=== PATIENT | female | born 1935 | race Caucasian/White ===

== ENCOUNTER 2020-08-19 09:06 | Outpatient (REF) | payer MEDICARE, SELFPAY | END 2020-08-19 09:07 | disposition home or self-care (01) | LOC: HO.BBR 09:06 | PROVIDERS: Visit Provider Internal Medicine Medical Oncology | DX: D75.1 Secondary polycythemia (principal) | CPT/HCPCS: 36415; 85018; 99195 ==

== ENCOUNTER 2020-09-16 09:00 | Outpatient (REF) | payer MEDICARE, SELFPAY | END 2020-09-16 09:01 | disposition home or self-care (01) | LOC: HO.BBR 09:00 | PROVIDERS: Visit Provider Internal Medicine Medical Oncology | DX: D45 Polycythemia vera (principal) | CPT/HCPCS: 85014; 85018; 99195 ==

== ENCOUNTER 2022-11-16 17:35 | Emergency (ER) | payer MEDICARE, SELFPAY ==
--- NOTE | ~2022-11-16 | CT_ITS ---
EXAMINATION: CT WRIST WITHOUT CONTRAST, RIGHT CLINICAL INFORMATION: Question fracture. COMPARISON: Right hand radiographs performed earlier on 11/16/2022 TECHNIQUE: Axial images were obtained through the right wrist without the administration of intravenous contrast. Multiplanar reformatted images were generated. This CT examination was performed using dose optimization techniques as appropriate, variously including the following: *Automated exposure control *Adjustment of mA and/or kV according to patient size (this includes techniques or standardized protocols for targeted exams where dose is matched to indication/reason for exam; i.e. extremities or head) *Use of iterative reconstruction technique DLP: 186 mGy-cm FINDINGS: Exam quality is significantly limited. No acute fracture or dislocation is identified. Scapholunate interval is maintained. Ulnar positive variance with advanced osteoarthritic change at the DRUJ and findings consistent with ulnocarpal impaction with sclerosis and remodeling of the ulnar base of the lunate and opposing ulnar head. Additional osteoarthritic changes at triscaphe and first CMC joint. Relatively diffuse subcutaneous edema about the wrist. CT/CT wrist RT wo IV con IMPRESSION: 1. Exam quality significantly limited. No acute fracture or dislocation identified within the limitations of this study. 2. 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
--- NOTE | ~2022-11-16 | XR_ITS ---
EXAMINATION: RIGHT WRIST AND HAND CLINICAL INFORMATION: Fracture COMPARISON: None TECHNIQUE: 4 views right wrist and hand FINDINGS: Marked degenerative changes are present at the interphalangeal joints as well as at the first metacarpal phalangeal joint. Mild to moderate changes present also at the first CMC joint as well as the radiocarpal joint and the radial/ulnar joint. No fractures are seen. XR/XR hand wrist RT IMPRESSION: Degenerative changes without evidence of an acute fracture.
--- NOTE | ~2022-11-16 | XR_ITS ---
EXAMINATION: XR CHEST CLINICAL INFORMATION: Cough COMPARISON: None TECHNIQUE: Frontal view of the chest was obtained. FINDINGS: There is mild cardiac enlargement. There is no evidence of CHF. No infiltrates, effusions or lung masses are seen. XR/XR chest 1V IMPRESSION: Mild cardiomegaly. No acute intrathoracic disease.
[2022-11-16 17:45] VITALS: BP 126/68; BP 150/65; PULSE 82; PULSE 94; TEMP 36.7; O2SAT 95; O2SAT 98; BMI 18.8
--- NOTE | 2022-11-16 17:53 | ED_ITS ---
HPI - General Adult General Chief complaint: General Medical Stated complaint: From SNF, Swollen R wrist this AM per EMS Time Seen by Provider: 11/16/22 17:41 Source: patient, family, EMS and RN notes reviewed Mode of arrival: EMS Limitations: altered mental status History of Present Illness HPI narrative: History of dementia came from group home for cough for last few days tested for COVID negative also with pain in the right wrist which is going on since 10/29 previous x-ray was negative but today x-ray was done which showed fracture no recent fall other resident were positive for COVID patient been coughing a lot no fever saturating low 90s at room air at nursing no history of lung issues in the past patient already been vaccinated against COVID Related Data Previous Rx's Medication Instructions Recorded albuterol sulfate 90 mcg/actuation 2 puff inhalation Q4-6H PRN 11/16/22 aerosol inhaler (ProAir HFA) shortness of breath or wheezing #8.5 grams benzonatate 100 mg capsule 100 mg PO TID PRN cough #20 caps 11/16/22 cefuroxime axetil 250 mg tablet 250 mg PO BID 7 days #14 tabs 11/16/22 Allergies Allergy/AdvReac Type Severity Reaction Status Date / Time No Known Allergies Allergy Verified 11/16/22 17:53 Review of Systems Review of Systems: Yes all other systems are reviewed and are negative [facility] Social History Social History Advance Directives: No Advance Directives Information Provided: Yes Physical Exam ED Vital Signs: Vital Signs - 24 hr 11/16/22 17:45 11/16/22 19:08 11/16/22 20:32 Temperature 98.1 F Pulse Rate 82 79 88 Respiratory Rate 18 16 Blood Pressure 150/65 H Pulse Oximetry 95 96 Oxygen Delivery Method Room Air Room Air 11/16/22 20:32 11/16/22 22:02 Temperature 98.2 F 98.8 F Pulse Rate 86 88 Respiratory Rate 16 16 Blood Pressure 130/61 132/74 Pulse Oximetry 98 94 Oxygen Delivery Method Room Air Room Air BMI result Body Mass Index 18.8 Appearance: Alert. Oriented X3. No acute distress. Eyes: PERRLA, No Nystagmus ENT: Pharynx normal. Oral Mucosa moist Neck: Normal inspection. Neck supple. CVS: Normal heart rate and rhythm. Pulses normal. Respiratory: No respiratory distress. Equal air entry bilateral, bilateral wheezing with crackles at bases Abdomen: Soft and nontender. Bowel sounds are present, no mass palpable, no CVA tenderness Skin: Skin warm and dry. Normal skin color. Normal skin turgor. Extremities: No lower extremity edema. No calf tenderness right wrist swollen and tender Neuro: Oriented X 3. No motor deficit. No sensory deficit.No cerebellar signs , cranial nerves II-XII intact Medications Administered Discontinued Medications Generic Name Dose Route Start Last Admin Trade Name Twanq PRN Reason Stop Dose Admin Albuterol Sulfate 2 puff 11/16/22 21:38 11/16/22 21:51 Albuterol Sulfate 90 Mcg 8 Gm Inhaler INHALE 11/16/22 21:39 2 puff ONCE ONE Administration Albuterol Sulfate 2.5 mg/ 0 mg 11/16/22 18:59 11/16/22 19:05 Ipratropium [place] 0.5 mg INHALE 11/16/22 19:00 2.5 each ONCE ONE Administration Guaifenesin/Codeine Phosphate 5 ml 11/16/22 21:38 11/16/22 21:51 Guaifen/Codeine Sf 200/20/10ml 10 Ml Liquid PO 11/16/22 21:39 5 ml ONCE ONE Administration Ceftriaxone Sodium 1 gm/ 50 mls @ 100 mls/hr 11/16/22 18:59 11/16/22 19:58 Sodium Chloride IV 11/16/22 19:28 Infused ONCE ONE Infusion Morphine Sulfate 2 mg 11/16/22 20:35 11/16/22 20:47 Morphine Sulfate 2 Mg/Ml Cartridge IVPUSH 11/16/22 20:36 2 mg ONCE ONE Administration Protocol Quetiapine Fumarate 25 mg 11/16/22 19:36 11/16/22 19:56 Quetiapine Fumarate 25 Mg Tablet PO 11/16/22 19:37 25 mg ONCE ONE Administration Procedures Orthopedic Splinting/Casting Injury #1: Side: right Upper Extremity Injury Location: wrist Upper Extremity Immobilizer: wrist splint Medical Decision Making Medical Decision Making MDM Narrative: Patient with cough chest x-ray and flu influenza and COVID are SV negative has leukocytosis likely bronchitis will give her Ceftin. X-ray and CT scan of the right wrist negative for fracture will discharge patient back to group home with family. Patient is saturating 95% at room air Differential Diagnosis Bronchitis/influenza/COVID/RSV/pneumonia/CHF. Lab Data [facility] Lab Attestation statement: I reviewed the patient's lab results. 11/16/22 18:35 11/16/22 18:35 Labs: Lab Results 11/16/22 11/16/22 11/16/22 Range/Units 18:35 18:35 18:35 WBC 13.0 H (4.8-10.8) X10*3/uL RBC 4.13 L (4.20-5.50) X10*6/uL Hgb 12.8 (12.0-16.0) g/dl Hct 38.0 (37.0-47.0) % MCV 92.0 (80.0-98.0) fL MCH 31.0 (27.0-33.0) pg MCHC 33.7 (31.0-35.0) g/dl RDW 12.9 (11.0-16.0) % Plt Count 289 (160-400) X10*3/uL MPV 11.2 (9.4-12.3) fL Immature Gran % (Auto) Cancelled Neut % (Auto) Cancelled Lymph % (Auto) Cancelled [place] % (Auto) Cancelled Eos % (Auto) Cancelled Baso % (Auto) Cancelled Lymph # (Auto) Cancelled [place] # (Auto) Cancelled Eos # (Auto) Cancelled Baso # (Auto) Cancelled Abs Immat Gran (auto) Cancelled Absolute Neuts (auto) Cancelled Absolute Nucleated RBC 0.000 (0.0-0.012) X10*3/uL Nucleated RBC % (auto) 0.0 (0.0-0.2) /100WBC Neutrophils % (Manual) 85 H (45-73) % Band Neutrophils % 2 L (3-5) % Lymphocytes % (Manual) 7 L (20-40) % Monocytes % (Manual) 5 (2-11) % Myelocytes % 1 % Abs Neuts (Manual) 11.3 H (2.0-8.3) X10*3/uL Lymphocytes # (Manual) 0.9 L (1.2-4.9) X10*3/uL Monocytes # (Manual) 0.7 (0.1-1.2) X10*3/uL Myelocytes # 0.1 X10*/uL Toxic Vacuolation PRESENT Platelet Estimate NORMAL (NORMAL) Plt Morphology Comment NORMAL RBC Morphology NORMAL Sodium 130 L (135-145) mmol/L Potassium 4.6 (3.3-5.1) mmol/L Chloride 95 L (96-108) mmol/L Carbon Dioxide 24 (22-29) mmol/L Anion Gap 16 (12-20) BUN 9 (9-16) mg/dL Creatinine 0.66 (0.5-1.4) mg/dL Estim Creat Clear Calc 48.1 Estimated GFR > 60 Random Glucose 106 (60-115) mg/dL Lactic Acid (0.5-2.0) mmol/L Calcium 9.0 (8.4-10.2) mg/dL Total Bilirubin 1.4 H (0.0-1.0) mg/dL AST 23 (5-31) U/L ALT 10 (0-31) U/L Alkaline Phosphatase 112 (39-117) U/L Troponin I High Sens (<3.5-17.0) ng/L B-Natriuretic Peptide 124 H (<100) pg/mL Total Protein 7.0 (6.5-8.0) g/dL Albumin 3.6 (3.5-5.0) g/dL Influenza Type A (PCR) (Negative) Influenza Type B (PCR) (Negative) RSV RNA Qual (PCR) (Negative) SARS-CoV-2 RNA (RT-PCR) (Negative) 11/16/22 11/16/22 11/16/22 Range/Units 18:35 19:10 19:10 WBC (4.8-10.8) X10*3/uL RBC (4.20-5.50) X10*6/uL Hgb (12.0-16.0) g/dl Hct (37.0-47.0) % MCV (80.0-98.0) fL MCH (27.0-33.0) pg MCHC (31.0-35.0) g/dl RDW (11.0-16.0) % Plt Count (160-400) X10*3/uL MPV (9.4-12.3) fL Immature Gran % (Auto) Neut % (Auto) Lymph % (Auto) [place] % (Auto) Eos % (Auto) Baso % (Auto) Lymph # (Auto) [place] # (Auto) Eos # (Auto) Baso # (Auto) Abs Immat Gran (auto) Absolute Neuts (auto) Absolute Nucleated RBC (0.0-0.012) X10*3/uL Nucleated RBC % (auto) (0.0-0.2) /100WBC Neutrophils % (Manual) (45-73) % Band Neutrophils % (3-5) % Lymphocytes % (Manual) (20-40) % Monocytes % (Manual) (2-11) % Myelocytes % % Abs Neuts (Manual) (2.0-8.3) X10*3/uL Lymphocytes # (Manual) (1.2-4.9) X10*3/uL Monocytes # (Manual) (0.1-1.2) X10*3/uL Myelocytes # X10*/uL Toxic Vacuolation Platelet Estimate (NORMAL) Plt Morphology Comment RBC Morphology Sodium (135-145) mmol/L Potassium (3.3-5.1) mmol/L Chloride (96-108) mmol/L Carbon Dioxide (22-29) mmol/L Anion Gap (12-20) BUN (9-16) mg/dL Creatinine (0.5-1.4) mg/dL Estim Creat Clear Calc Estimated GFR Random Glucose (60-115) mg/dL Lactic Acid 1.3 (0.5-2.0) mmol/L Calcium (8.4-10.2) mg/dL Total Bilirubin (0.0-1.0) mg/dL AST (5-31) U/L ALT (0-31) U/L Alkaline Phosphatase (39-117) U/L Troponin I High Sens 14.0 (<3.5-17.0) ng/L B-Natriuretic Peptide (<100) pg/mL Total Protein (6.5-8.0) g/dL Albumin (3.5-5.0) g/dL Influenza Type A (PCR) NEGATIVE (Negative) Influenza Type B (PCR) NEGATIVE (Negative) RSV RNA Qual (PCR) NEGATIVE (Negative) SARS-CoV-2 RNA (RT-PCR) NEGATIVE (Negative) Discharge Plan Discharge Clinical Impression: Acute bronchitis, Reactive arthritis of wrist Patient Disposition: Xfer SNF Transfer Details: CT scan of the right wrist negative for fracture, COVID/influenza/RSV negative chest x-ray negative You received morphine and Seroquel while at this emergency department today Instructions: Acute Bronchitis (ED), Arthritis (ED) Additional Instructions: Take antibiotics, cough drops and albuterol inhaler Ibuprofen for pain right wrist Wear the splint for support Prescriptions: New cefuroxime axetil 250 mg tablet 250 mg PO BID 7 Days Qty: 14 0RF benzonatate 100 mg capsule 100 mg PO TID PRN (Reason: cough) Qty: 20 0RF albuterol sulfate [ProAir HFA] 90 mcg/actuation HFA aerosol inhaler 2 puff inhalation Q4-6H PRN (Reason: shortness of breath or wheezing) Qty: 8. 5 0RF Stand Alone Forms: Work/School Release Interventions: ED Discharge Assessment Last Done: 11/16/22 22:03 Discharge Date/Time: 11/16/22 23:07
--- NOTE | 2022-11-16 17:53 | ECG_ITS ---
Test Reason : SOB Blood Pressure : / mmHG Vent. Rate : 090 BPM Atrial Rate : 090 BPM P-R Int : 170 ms QRS Dur : 080 ms QT Int : 374 ms P-R-T Axes : 053 -35 044 degrees QTc Int : 457 ms Normal sinus rhythm Left axis deviation Septal infarct , age undetermined Abnormal ECG No previous ECGs available Referred By: Cheko Buckner Electronically Signed By:Ced Pond
[2022-11-16 18:52] LABS: Hemoglobin 12.8 g/dl (12.0-16.0); Mean Corpuscular HGB Conc 33.7 g/dl (31.0-35.0)
[2022-11-16 18:59] LABS: Mean Platelet Volume 11.2 fL (9.4-12.3); Platelet Count 289 X10*3/uL (160-400); Red Blood Count 4.13 X10*6/uL (4.20-5.50); Red Cell Distribution Width 12.9 % (11.0-16.0); WBC ABN SCTR FOR CBC 1
[2022-11-16 19:08] VITALS: PULSE 79; RESP 18; O2SAT 98
[2022-11-16 19:08] LABS: B Type Natriuretic Peptide 124 pg/mL (<100)
[2022-11-16 19:12] LABS: Alanine Aminotransferase 10 U/L (0-31); Albumin Level 3.6 g/dL (3.5-5.0); Alkaline Phosphatase 112 U/L (39-117); Anion Gap 16 (12-20); Aspartate Amino Transferase 23 U/L (5-31); Bilirubin Total 1.4 mg/dL (0.0-1.0); Blood Urea Nitrogen 9 mg/dL (9-16); Carbon Dioxide 24 mmol/L (22-29); Chloride 95 mmol/L (96-108); Creatinine Clr Calc Pharmacy 48.1; Estimated Glomerular Filt Rate > 60; Glucose Random 106 mg/dL (60-115); Potassium 4.6 mmol/L (3.3-5.1); Sodium 130 mmol/L (135-145)
[2022-11-16] MEDS: cefTRIAXone sodium 1 GM in 0.9 % Sodium Chloride 50 ML IV (19:24)
[2022-11-16 19:33] LABS: Lactic Acid 1.3 mmol/L (0.5-2.0)
[2022-11-16 19:41] LABS: Band Neutrophils Percent 2 % (3-5); Lymphocytes Absolute Manual 0.9 X10*3/uL (1.2-4.9); Lymphocytes Percent Manual 7 % (20-40); Monocytes Absolute Manual 0.7 X10*3/uL (0.1-1.2); Monocytes Percent Manual 5 % (2-11); Myelocytes Absolute 0.1 X10*/uL; Myelocytes Percent 1 %; Neutrophils Absolute Manual 11.3 X10*3/uL (2.0-8.3); Neutrophils Percent Manual 85 % (45-73)
[2022-11-16 19:42] LABS: RBC Morphology NORMAL; Toxic Vacuolation PRESENT
[2022-11-16 19:43] LABS: Platelet Estimate NORMAL (NORMAL); Platelet Morphology Comment NORMAL
[2022-11-16] MEDS: QUEtiapine Fumarate 25 MG TABLET PO (19:56)
[2022-11-16 19:57] LABS: Influenza A PCR NEGATIVE (Negative); Influenza B PCR NEGATIVE (Negative); Resp Syncy Virus RNA Qual PCR NEGATIVE (Negative); SARS COV2 PCR INHOUSE NEGATIVE (Negative)
--- NOTE | 2022-11-16 20:00 | PC.NURSE ---
pt beginning to get agitated, wanting to get out of bed. MD aware, Seroquel administered per MAR
--- NOTE | 2022-11-16 20:20 | PC.NURSE ---
pt daughter at bedside
[2022-11-16 20:32] VITALS: BP 130/61; PULSE 86; PULSE 88; RESP 16; TEMP 36.8; O2SAT 96; O2SAT 98
[2022-11-16] MEDS: Morphine Sulfate 2 MG/ML CARTRIDGE IVPUSH (20:47)
[2022-11-16] MEDS: guaiFEN/Codeine SF 200/20/10ML 10 ML LIQUID 5 ML PO (21:51)
[2022-11-16] MEDS: Albuterol Sulfate 90 MCG 8 GM INHALER 2 PUFF INHALE (21:51)
[2022-11-16 22:02] VITALS: BP 132/74; PULSE 88; RESP 16; TEMP 37.1; O2SAT 94
== END 2022-11-16 23:07 | disposition skilled nursing facility (03) ==
PROVIDERS: Emergency Provider Internal Medicine
DX: J20.9 Acute bronchitis, unspecified (principal); M19.031 Primary osteoarthritis, right wrist; Z20.822 Contact with and (suspected) exposure to COVID-19; Z20.828 Contact with and (suspected) exposure to other viral communicable diseases
CPT/HCPCS: 0241U; 36415; 71045; 73110; 73130; 73200; 80053; 83605; 83880; 84484; 85007; 85027; 87040; 93005; 94640; 96365; 96375; 99285; J0696; J2270

== ENCOUNTER 2025-09-03 19:13 | Emergency (ER) | payer MEDICARE, SELFPAY ==
--- NOTE | ~2025-09-03 | XR_ITS ---
CLINICAL HISTORY: Abd distention 1 view abdomen Comparison: None provided Findings: No pneumoperitoneum or pneumatosis. Gaseous loops of small and large bowel in a nonobstructive pattern. Moderate stool burden. No abnormal calcifications. No acute fractures. Multilevel degenerative changes of the spine. Levoscoliosis of the lumbar spine. Severe right hip osteoarthritis. IMPRESSION: Nonobstructive bowel gas pattern. This document has been electronically signed by: Narda Lewis MD on 09/03/2025 21:35:04
--- NOTE | ~2025-09-03 | CT_ITS ---
CLINICAL HISTORY: abd pain, distention CT Abdomen and Pelvis W Contrast COMPARISON: CR - XR KUB - 09/03/25 21:04 EDT FINDINGS: Cardiomegaly. Normal liver. Normal spleen. Normal kidneys. Normal adrenal glands. Normal pancreas. No visible cholelithiasis. No biliary dilation. Colonic diverticulosis without evidence of acute diverticulitis. Air-fluid levels in nondistended small bowel. No mucosal thickening. No evidence of obstruction. Normal appendix. Physiologic distention of the bladder. Thickened endometrium measuring up to 1.3 cm in thickness. No ascites. No pneumoperitoneum. No lymphadenopathy. No acute fracture. Lumbar levoscoliosis. Degenerative changes in the spine and hips. No abdominal aortic aneurysm. IMPRESSION: Air-fluid levels in nondistended small bowel, which could be due to enteritis or dysmotility. Abnormal endometrial thickening. Consider nonemergent pelvic ultrasound if not worked up in the past. Nonemergent/incidental findings above. This document has been electronically signed by: Sander Venegas MD on 09/04/2025 02:34:24
[2025-09-03 19:17] VITALS: BP 140/70; PULSE 65; O2SAT 98
[2025-09-03 19:28] VITALS: BP 168/47; PULSE 64; RESP 16; TEMP 36.6; O2SAT 98; BMI 17.7
[2025-09-03 19:50] LABS: MANUAL DIFF FLAG NO
[2025-09-03 19:51] LABS: Hematocrit 41.3 % (37.0-47.0); Hemoglobin 13.7 g/dl (12.0-16.0); Imm Gran Abs Auto 0.02 X10*3/uL (0.00-0.03); Imm Gran Pct Auto 0.2 % (0.0-0.4); Lymphocytes Absolute Auto 1.3 X10*3/uL (1.2-4.9); Mean Corpuscular HGB Conc 33.2 g/dl (31.0-35.0); Mean Corpuscular Hemoglobin 31.6 pg (27.0-33.0); Mean Corpuscular Volume 95.4 fL (80.0-98.0); NRBC Abs Auto 0.000 X10*3/uL (0.0-0.012); NRBC Pct Auto 0.0 /100WBC (0.0-0.2); Platelet Count 182 X10*3/uL (160-400); Red Blood Count 4.33 X10*6/uL (4.20-5.50); White Blood Count 8.9 X10*3/uL (4.8-10.8)
[2025-09-03 19:52] VITALS: BP 168/47; PULSE 64; RESP 16; TEMP 36.6; O2SAT 98
[2025-09-03 20:04] LABS: INTERNATIONAL NORM RATIO 1.0 (0.9-1.1); Prothrombin Time 11.3 SEC (10.9-12.4)
[2025-09-03 20:07] LABS: Alanine Aminotransferase 10 U/L (0-31); Albumin Level 4.6 g/dL (3.5-5.0); Alkaline Phosphatase 108 U/L (39-117); Anion Gap 12 (12-20); Aspartate Amino Transferase 23 U/L (5-31); Blood Urea Nitrogen 12 mg/dL (9-16); Calcium 9.6 mg/dL (8.4-10.2); Carbon Dioxide 32 mmol/L (22-29); Chloride 101 mmol/L (96-108); Creatinine Clr Calc Pharmacy 35.9; Estimated Glomerular Filt Rate > 60; Magnesium 2.1 mg/dL (1.6-2.6); Potassium 4.4 mmol/L (3.3-5.1); Sodium 141 mmol/L (135-145); Total Protein 7.8 g/dL (6.5-8.0)
[2025-09-03 22:14] VITALS: BP 176/51; PULSE 62; TEMP 36.6; O2SAT 96
[2025-09-03] MEDS: Lactated Ringers 500 ML 999 ML IV (23:41)
[2025-09-04 00:26] VITALS: BP 160/51; PULSE 60; TEMP 36.6; O2SAT 98
[2025-09-04] MEDS: iohexoL 350 MG/ML 100 ML INFUS..BTL 85 ML IV (01:03)
--- NOTE | 2025-09-04 02:12 | PC.NURSE ---
straight cath preformed for urine sample. 1000 ml emptied from bladder. sample sent to lab.
[2025-09-04 02:18] LABS: Appearance Urine Clear; Glucose Urine UA Negative (Negative); PH 7.0 (5.0-9.0); Specific Gravity - Urine 1.020 (1.005-1.025)
--- NOTE | 2025-09-04 03:23 | ED.ABDPAIN ---
HPI - Abdominal Pain General Chief Complaint: Abdominal Pain Stated Complaint: abd distension Time Seen by Provider: 09/03/25 23:12 Source: patient, family, EMS, RN notes reviewed and old records reviewed Mode of arrival: EMS Limitations: other (Dementia) History of Present Illness ED Provider: Dr. Fela Benito HPI narrative: 89-year-old female with a history of dementia, multiple bowel obstructions in the past presenting with reported abdominal distention and pain. Patient is denying any symptoms but has dementia in his somewhat confused. Her daughter who is her healthcare proxy is at bedside and reports that she was called today by the [facility] with reports of abdominal distention however, the patient has been seen in the hospital many times for this and each time has a negative workup. She has had history of bowel obstructions though. It is unclear when her last bowel movement May has been. She is not vomiting or nauseous. Patient has no chest pain or difficulty breathing. No recent falls. No reported fever. Related Data Previous Rx's ?Medication ?Instructions ?Recorded albuterol sulfate 90 mcg/actuation 2 puff inhalation Q4-6H PRN 11/16/22 aerosol inhaler (ProAir HFA) shortness of breath or wheezing #8.5 grams benzonatate 100 mg capsule 100 mg PO TID PRN cough #20 caps 11/16/22 cefuroxime axetil 250 mg tablet 250 mg PO BID 7 days #14 tabs 11/16/22 simethicone 125 mg capsule 125 mg PO DAILY PRN abdominal 09/04/25 distention #30 caps simethicone 125 mg capsule 125 mg PO DAILY PRN abdominal 09/04/25 distention #30 caps Allergies Allergy/AdvReac Type Severity Reaction Status Date / Time No Known Allergies Allergy Verified 09/03/25 19:31 Review of Systems Review of Systems Yes Unobtainable due to mental condition (Dementia) Physical Exam ED Exam Exam: GENERAL: Chronically ill-appearing, conversant, no acute distress. SKIN: Normal skin color for ethnicity, warm, dry, no rashes noted. HEENT: Normocephalic, atraumatic, no stridor, posterior oropharynx nonerythematous, EOMI. NECK: Soft, supple, full ROM, midline structures nontender, no step-offs, no deformities, no lymphadenopathy. CHEST: Heart regular rate and rhythm, no murmurs, symmetric chest rise and fall. PULMONARY: Clear to auscultation bilaterally, no labored breathing, no wheezes/rhales/ rhonchi. ABDOMINAL: Soft, diffusely distended, diffusely tender to palpation without rebound, voluntary guarding, quiet bowel sounds in all quadrants, no palpable masses. : Deferred. MUSCULOSKELETAL: Normal tone, full range of motion, no deformities, no peripheral edema. NEURO: Alert and oriented to person, CN II through XII intact, no focal neurologic deficits. PSYCHIATRIC: Flat affect, fluid speech, appropriate demeanor. Vital Signs: Vital Signs - 24 hr 09/03/25 19:28 09/03/25 19:52 09/03/25 22:14 Temperature 97.9 F 97.9 F 97.8 F Pulse Rate 64 64 62 Respiratory Rate 16 16 Blood Pressure 168/47 H 168/47 H 176/51 H Pulse Oximetry 98 98 96 Oxygen Delivery Method Room Air Room Air Room Air 09/04/25 00:26 Temperature 97.9 F Pulse Rate 60 Respiratory Rate Blood Pressure 160/51 H Pulse Oximetry 98 Oxygen Delivery Method BMI result Body Mass Index 17.7 Medical Decision Making Medical Decision Making [facility] Narrative: This patient presents today with a chief complaint of abdominal pain. Differential diagnosis for this patient is broad. It includes appendicitis, cholecystitis, bowel obstruction, peptic ulcer disease, pyelonephritis, vascular pathology, among many others. A broad-based workup based on history and physical examination was obtained. CT shows evidence of constipation. Discussed with daughter a bowel regimen and antispasmodic agent for the gut since she was so tender on exam. Plan for discharge back to the [facility]. Discharged in stable condition. Differential Diagnosis Differential Diagnoses: The differential diagnosis associated with the presentation includes (as above) Admission/Observation Consideration of admission/observation: Escalation of care including admission/observation considered Lab Data [facility] Lab Attestation statement: I reviewed the patient's lab results. 09/03/25 19:46 09/03/25 19:46 Labs: Lab Results 09/03/25 09/04/25 Range/Units 19:46 02:09 WBC 8.9 (4.8-10.8) X10*3/uL RBC 4.33 (4.20-5.50) X10*6/uL Hgb 13.7 (12.0-16.0) g/dl Hct 41.3 (37.0-47.0) % MCV 95.4 (80.0-98.0) fL MCH 31.6 (27.0-33.0) pg MCHC 33.2 (31.0-35.0) g/dl RDW 13.6 (11.0-16.0) % Plt Count 182 D (160-400) X10*3/uL MPV 11.2 (9.4-12.3) fL Immature Gran % (Auto) 0.2 (0.0-0.4) % Neut % (Auto) 76.3 H (45-73) % Lymph % (Auto) 14.8 L (20-40) % [place] % (Auto) 7.1 (2-11) % Eos % (Auto) 1.2 (0-4) % Baso % (Auto) 0.4 (0-2) % Lymph # (Auto) 1.3 (1.2-4.9) X10*3/uL [place] # (Auto) 0.6 (0.1-1.2) X10*3/uL Eos # (Auto) 0.1 (0.0-0.4) X10*3/uL Baso # (Auto) 0.0 (0.0-0.2) X10*3/uL Abs Immat Gran (auto) 0.02 (0.00-0.03) X10*3/uL Absolute Neuts (auto) 6.8 (2.0-8.3) x10*3/uL Absolute Nucleated RBC 0.000 (0.0-0.012) X10*3/uL Nucleated RBC % (auto) 0.0 (0.0-0.2) /100WBC PT 11.3 (10.9-12.4) SEC INR 1.0 (0.9-1.1) Sodium 141 (135-145) mmol/L Potassium 4.4 (3.3-5.1) mmol/L Chloride 101 (96-108) mmol/L Carbon Dioxide 32 H (22-29) mmol/L Anion Gap 12 (12-20) BUN 12 (9-16) mg/dL Creatinine 0.76 (0.5-1.4) mg/dL Estim Creat Clear Calc 35.9 Estimated GFR > 60 Random Glucose 114 (60-115) mg/dL Calcium 9.6 D (8.4-10.2) mg/dL Magnesium 2.1 (1.6-2.6) mg/dL Total Bilirubin 0.5 (0.0-1.0) mg/dL AST 23 (5-31) U/L ALT 10 (0-31) U/L Alkaline Phosphatase 108 (39-117) U/L Total Protein 7.8 (6.5-8.0) g/dL Albumin 4.6 (3.5-5.0) g/dL Urine Color Yellow Urine Appearance Clear Urine pH 7.0 (5.0-9.0) Ur Specific [place] 1.020 (1.005-1.025) Urine Protein Negative (Neg-Trace) mg/dL Urine Glucose (UA) Negative (Negative) mg/dL Urine Ketones Negative (Negative) mg/dL Urine Blood Negative (Negative) Urine Nitrite Negative (Negative) Ur Leukocyte Esterase Negative (Negative) Independent Interpretation I performed an independent interpretation of an: Plain X-Ray Interpretation: KUB: Slightly distended loops of bowel, nonspecific bowel gas pattern Radiology Impression Discussion of test interpretation with radiology: I have reviewed the radiologist's reading. Radiologist Impression: CT Abdomen and Pelvis W Contrast COMPARISON: CR - XR KUB - 09/03/25 21:04 EDT FINDINGS: Cardiomegaly. Normal liver. Normal spleen. Normal kidneys. Normal adrenal glands. Normal pancreas. No visible cholelithiasis. No biliary dilation. Colonic diverticulosis without evidence of acute diverticulitis. Air-fluid levels in nondistended small bowel. No mucosal thickening. No evidence of obstruction. Normal appendix. Physiologic distention of the bladder. Thickened endometrium measuring up to 1.3 cm in thickness. No ascites. No pneumoperitoneum. No lymphadenopathy. No acute fracture. Lumbar levoscoliosis. Degenerative changes in the spine and hips. No abdominal aortic aneurysm. IMPRESSION: Air-fluid levels in nondistended small bowel, which could be due to enteritis or dysmotility. Abnormal endometrial thickening. Consider nonemergent pelvic ultrasound if not worked up in the past. Nonemergent/incidental findings above. Independent Historian Clinical information obtained from an independent historian. History obtained from or confirmed by: EMS and Other (daughter) External Record Review External record reviewed: Inpatient record and Outpatient record Prescription Management I considered prescription management with: Pain Medication and Other (Laxatives) Chronic Conditions Patient?s care impacted by: Other (Dementia) Social Determinants Patient?s care significantly limited by Social Determinants of Health including: Other Social Determinant of Health Medications Administered Discontinued Medications Generic Name Dose Route Start Last Admin Trade Name Freq PRN Reason Stop Dose Admin Acetaminophen 650 mg 09/03/25 23:32 09/03/25 23:37 Acetaminophen 325 Mg Tablet PO 09/03/25 23:33 650 mg ONCE ONE Administration Lactated Ringer's 500 mls @ 999 mls/hr 09/03/25 23:31 09/04/25 01:39 Lr IV 09/04/25 00:01 Infused .Q31M ONE Infusion Iohexol 85 ml 09/04/25 01:02 09/04/25 01:03 Iohexol 350 Mg/Ml 100 Ml Infus..Btl IV 09/04/25 01:03 85 ml ONCE ONE Administration Melatonin 3 mg 09/03/25 23:30 09/03/25 23:37 Melatonin 3 Mg Tablet PO 09/03/25 23:31 3 mg ONCE ONE Administration Polyethylene Glycol 17 gm 09/04/25 03:19 09/04/25 04:38 Polyethylene Glycol 3350 17 Gm Powd.Pack PO 09/04/25 03:20 17 gm ONCE ONE Administration Simethicone 160 mg 09/04/25 03:24 09/04/25 04:38 Simethicone 80 Mg Tab.Chew PO 09/04/25 03:25 160 mg ONCE ONE Administration Discharge Plan Discharge Clinical Impression: Acute abdominal pain, Constipation Patient Disposition: Xfer [facility] Instructions: Gas and Bloating (ED) Additional Instructions: Your blood work and CAT scan today are reassuring. There is some evidence of abdominal distention and gas which could be contributing to your abdominal pain. Try to take simethicone to help with gas pains as needed. You can take this up to 2 times a day. Alternatively, you may continue to use laxatives to help move your bowels more regularly. Drink plenty of fluid, take in plenty of fiber, and return to the hospital if you have any new or worsening symptoms. Prescriptions: New simethicone 125 mg capsule 125 mg PO DAILY PRN (Reason: abdominal distention) Qty: 30 0RF simethicone 125 mg capsule 125 mg PO DAILY PRN (Reason: abdominal distention) Qty: 30 0RF No Action cefuroxime axetil 250 mg tablet 250 mg PO BID 7 Days Qty: 14 0RF benzonatate 100 mg capsule 100 mg PO TID PRN (Reason: cough) Qty: 20 0RF albuterol sulfate [ProAir HFA] 90 mcg/actuation HFA aerosol inhaler 2 puff inhalation Q4-6H PRN (Reason: shortness of breath or wheezing) Qty: 8.5 0RF Interventions: ED Discharge Assessment Last Done: 09/04/25 04:46 Discharge Date/Time: 09/04/25 04:49 Print Language: Syriac
[2025-09-04 04:46] VITALS: BP 160/51; PULSE 60; RESP 16; TEMP 36.6; O2SAT 98
--- NOTE | 2025-09-04 04:46 | PC.NURSE ---
attempted to call the [facility] to give report. No answer from facility.
== END 2025-09-04 04:49 | disposition skilled nursing facility (03) ==
PROVIDERS: Physician Assistant Medical; Emergency Provider Emergency Medicine; PCP Internal Medicine
DX: R14.0 Abdominal distension (gaseous) (principal); K59.00 Constipation, unspecified; R10.9 Unspecified abdominal pain; F03.90 Unspecified dementia, unspecified severity, without behavioral disturbance, psychotic disturbance, mood disturbance, and anxiety; Z79.899 Other long term (current) drug therapy
CPT/HCPCS: 36415; 74018; 74177; 80053; 81003; 83735; 85025; 85610; 96360; 96361; 99285; J7120; Q9967

== ENCOUNTER → 2025-09-04 00:58 | Outpatient (BNV) | payer MEDICARE, SELFPAY | PROVIDERS: Emergency Provider Emergency Medicine; PCP Internal Medicine; Visit Provider Radiology Diagnostic Radiology | DX: N85.00 Endometrial hyperplasia, unspecified (principal) | CPT/HCPCS: 74177 ==